=== PATIENT | female | born 1985 | race Caucasian/White ===

== ENCOUNTER 2018-01-06 12:51 | Emergency (ER) | payer SELFPAY ==
[~2018-01-06] VITALS: Ht 154.9 cm; Wt 80.0 kg
[~2018-01-06 12:51] MED LIST: CHLO.12%30 SSP; CLIN150 PO; IBUP800T23 PO
[2018-01-06 13:00] VITALS: BP 128/97; PULSE 100; RESP 16; TEMP 97.9; O2SAT 99
[2018-01-06] MEDS ORDERED: KETOROLAC TROMETHAMINE 60 MG/2 ML (IM) VIAL IM ONE (14:00)
[2018-01-06] MEDS ORDERED: IBUP1TAB7 PO (14:00)
[2018-01-06] MEDS ORDERED: ORPHENADRINE INJ 60 MG/2 ML AMP IM ONE (14:00)
[2018-01-06] MEDS ORDERED: ROBA500T PO (14:00)
--- NOTE | 2018-01-06 14:00 | PD ---
HPI Chief Complaint: Injury Time Seen by Provider: 13:20 Travel History International Travel<30 days: No Contact w/Intl Traveler<30days: No Traveled to known affect area: No History of Present Illness HPI 32-year-old female presents to the emergency department with complaint of right hip pain that extends to her right thigh anterior thigh and medial thigh after attempting to do a cartwheel yesterday. She said she lifted her leg to do the cart wheel and instantly felt pain. She never was able to attempt the cartwheel after experiencing the pain. Denies traumatic injury. Denies paresthesias, loss of sensation, decreased range of motion to the affected extremity. Has been ambulatory on the affected extremity, but with minimal weightbearing. Denies fever, vomiting. Denies encopresis, incontinence, saddle anesthesias. Rates pain 8/10. Worse with movement. Better with rest. Has taken Advil with some relief of symptoms. No primary care provider. No known allergies. Denies significant past medical history. Has no other medical complaints. No other modifying factors or associated signs and symptoms. 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) Social History Alcohol Use: Yes (MONTHLY BEER, 2 WEEKS AGO) Tobacco Use: Yes (1-2 CIGS A DAY) Substance Use: No Allergies-Medications (Allergen,Severity, Reaction): Coded Allergies: No Known Allergies (Verified , 05/28/15) Reported Meds & Prescriptions Reported Meds & Active Scripts Active Ibuprofen 800 Mg Tab 800 Mg PO Q6HR PRN Robaxin (Methocarbamol) 500 Mg Tab 500 Mg PO QID PRN Peridex Oral Rinse (Chlorhexidine Gluconate) 0.12 % Daphne 15 Ml SSP BID 10 Days Ibuprofen 800 Mg Tab 800 Mg PO TID PRN Cleocin (Clindamycin HCl) 150 Mg Cap 300 Mg PO Q6 10 Days Review of Systems Except as stated in HPI: all other systems reviewed are Neg Physical Exam Narrative GENERAL: Well-nourished, well-developed female patient, in no acute distress; afebrile, nontoxic-appearing SKIN: Warm and dry. HEAD: Atraumatic. Normocephalic. EYES: Pupils equal and round. No scleral icterus. No injection or drainage. ENT: Mucosa pink and moist. Airway patent. NECK: Trachea midline. CARDIOVASCULAR: Regular rate. RESPIRATORY: No accessory muscle use. GASTROINTESTINAL: Rounded. MUSCULOSKELETAL: No leg length discrepancy. Right lateral hip/buttock area with tenderness on palpation. Right hip with full range of motion and without tenderness on abduction. Tenderness on palpation to the musculature of the medial and anterior thigh. bilateral lower extremities supple and non-tense with 2+ pedal pulses and sensory intact; with full range of motion and 5/5 strength. 2+ DTRs bilaterally. Active dorsiflexion and extension of bilateral feet. Bilateral straight leg raise is negative for low back pain. Ambulatory in room with a limp to the right lower extremity. Sitting up in bed at 90. No obvious deformities. No clubbing. No cyanosis. No edema. BACK: No midline point tenderness on palpation of the lumbar spine. Tenderness on palpation of the right lumbar buttock and hip area. No obvious deformities. NEUROLOGICAL: Awake and alert. Oriented 3. No obvious cranial nerve deficits. Motor grossly within normal limits. Normal speech. Moves all extremities. 5/5 strength to all extremities. Sensory intact. PSYCHIATRIC: Appropriate mood and affect; insight and judgment normal. Data Data Last Documented VS Vital Signs Date Time Temp Pulse Resp B/P (MAP) Pulse Ox O2 Delivery O2 Flow Rate FiO2 01/06/18 13:00 97.9 100 16 128/97 (107) 99 Orders Orders Ketorolac Inj (Toradol Inj) (01/06/18 14:00) Orphenadrine Inj (Norflex Inj) (01/06/18 14:00) Ed Discharge Order (01/06/18 13:56) Crutches (01/06/18 14:00) [facility] Medical Decision Making Medical Screen Exam Complete: Yes Emergency Medical Condition: Yes Medical Record Reviewed: Yes Differential Diagnosis Hip sprain, muscle strain of leg, groin strain Narrative Course 32-year-old female with pain to the right lateral hip, buttock area and to the right thigh after attempting to do a cartwheel yesterday and feeling pain when she went to lift up her leg. No traumatic injury. I do not suspect fracture, dislocation and feel that imaging is not necessary at this time. Crutches provided for support. Toradol and flex administered in the ER. Ibuprofen and Robaxin prescribed for home. Instructed patient to follow up with primary care provider. Patient verbalizes understanding and agreement with treatment plan. Patient is medically cleared and stable for discharge. Discussed reasons to return to the emergency department. Patient agrees with treatment plan. The patients vital signs are stable and the patient is stable for outpatient follow- up and treatment. Patient discharged home, stable and in no acute distress. Diagnosis Primary Impression: Sprain of right hip Qualified Codes: S73.101A - Unspecified sprain of right hip, initial encounter Additional Impression: Strain of muscle of right groin region Referrals: Primary Care Physician Patient Instructions: Crutch Instructions (ED), General Instructions, Hip Sprain (ED), Muscle Cramp (GEN), Muscle Spasm (ED), Muscle Strain (ED) Additional Instructions: Tylenol or ibuprofen as directed and as needed for pain Robaxin as prescribed and as needed for muscle spasms Heating pad and/or ice to affected area to reduce pain Avoid aggravating activities; increase activity as tolerated Crutches as needed for support Follow-up with primary care provider Return to emergency department immediately with worsening of symptoms Med/Other Pt SpecificInfo: Prescription(s) given Scripts Ibuprofen (Ibuprofen) 800 Mg Tab 800 MG PO Q6HR Y for PAIN, #30 TAB 0 Refills Prov: Marylu Bales 01/06/18 Methocarbamol (Robaxin) 500 Mg Tab 500 MG PO QID Y for MUSCLE SPASM, #30 TAB 0 Refills Prov: Marylu Bales 01/06/18 Disposition: 01 DISCHARGE HOME Condition: Stable Marylu Bales January 06, 2018 14:00
== END 2018-01-06 14:16 | disposition home or self-care (01) ==
LOC: NEPD 12:51
DX: S73.101A Unspecified sprain of right hip, initial encounter (principal); S39.011A Strain of muscle, fascia and tendon of abdomen, initial encounter; M79.651 Pain in right thigh; Z72.0 Tobacco use; X58.XXXA Exposure to other specified factors, initial encounter; Y93.43 Activity, gymnastics
CPT/HCPCS: 96372; 99283; E0113; J1885; J2360